=== PATIENT | male | born 1940 | race Caucasian/White ===

== ENCOUNTER 2018-02-09 12:54 | Inpatient (IN) | payer OTHER, MEDICARE ==
[~2018-02-09] VITALS: Ht 170.2 cm; Wt 75.4 kg
--- NOTE | 2018-02-09 13:31 | ED GI/GU/ABDOMINAL COMPLAINT ---
History of Present Illness General Chief Complaint: Nausea, Vomiting, Diarrhea Stated Complaint: DIARRHEA Source: patient, family, old records Exam Limitations: no limitations Vital Signs & Intake/Output Vital Signs & Intake/Output Vital Signs Date Time Temp Pulse Resp B/P B/P Pulse O2 O2 Flow FiO2 Mean Ox Delivery Rate 02/09 1306 97.8 88 18 90/57 96 Room Air Allergies Coded Allergies: Sulfa (Sulfonamide Antibiotics) (Mild, HIVES 02/09/18) Reconcile Medications Aspirin (Aspirin*) 81 MG TAB.CHEW 1 TAB PO DAILY HEART HEALTH (Reported) Lisinopril 10 MG TABLET 1 TAB PO DAILY HEART (Reported) Rosuvastatin Calcium (Crestor) 20 MG TABLET 1 TAB PO DAILY CHOLESTEROL ( Reported) Triage Note: RECEIVED 77 YO MALE C/O SEVERE DIARRHEA X 8 DAYS NO RECENT TRAVEL, DIARRHEA STARTED NAUSEA/VOMITING. NO C/O ABDOMINAL PAIN. PT NOT EATING AND DRINKING NORMALLY. PT HAS ALREADY HAD 6 EPISODES OF DIARRHEA TODAY. PT WAS SEEN AT URGENT CARE AND PROVIDED [facility] WITH A STOOL SAMPLE. SOME INTERMITTENT LIGHTHEADEDNESS/DIZZINESS WHEN HE BENDS OVER. Triage Nurses Notes Reviewed? yes HPI: Patient presents with an 8 day history of vomiting and diarrhea. Patient states that last week he was on his boat but denies eating any fresh seafood or clams or oysters. Patient states in the next day he developed watery diarrhea. He states that he has been moving his bowels approximately 10 times per day. Patient also states at times he suddenly just throws up. He denies any nausea. He says that just just comes out. Is no fevers or chills. He is now feeling a little weak. There is no abdominal pain or abdominal cramping. Patient went to a walk-in center and had a stool sample however he still does not have the results.. Patient has been taking Imodium without any relief. Past History Travel History Traveled to [place] past 21 day No Medical History Any Pertinent Medical History? see below for history Neurological: NONE EENT: NONE Cardiovascular: CARDIAC CATH WITH 2 STENT Respiratory: NONE Gastrointestinal: NONE Hepatic: NONE Renal: NONE Musculoskeletal: NONE Psychiatric: NONE Endocrine: NONE Blood Disorders: NONE Cancer(s): NONE Surgical History Surgical History: PTCA WITH STENT Psychosocial History What is your primary language Belarusian Tobacco Use: Never used ETOH Use: denies use Illicit Drug Use: denies illicit drug use Family History Hx Contributory? No Review of Systems Review of Systems Constitutional: Reports: see HPI, weakness. EENTM: Reports: no symptoms. Respiratory: Reports: no symptoms. Cardiovascular: Reports: no symptoms. GI: Reports: see HPI, diarrhea, nausea, vomiting. Genitourinary: Reports: no symptoms. Musculoskeletal: Reports: no symptoms. Skin: Reports: no symptoms. Neurological/Psychological: Reports: no symptoms. Hematologic/Endocrine: Reports: no symptoms. Immunologic/Allergic: Reports: no symptoms. All Other Systems: Reviewed and Negative Physical Exam Physical Exam General Appearance: well developed/nourished, alert, awake, anxious, mild distress Head: atraumatic, normal appearance Eyes: Bilateral: PERRL, EOMI. Ears, Nose, Throat, Mouth: hearing grossly normal, moist mucous membrane Neck: normal inspection, supple, full range of motion Respiratory: normal breath sounds, chest non-tender, no respiratory distress, lungs clear Cardiovascular: regular rate/rhythm, normal peripheral pulses Gastrointestinal: normal bowel sounds, soft, non-tender, no organomegaly Back: normal inspection, normal range of motion Extremities: normal range of motion Neurologic/Psych: no motor/sensory deficits, awake, alert, oriented x 3, normal gait, normal mood/affect Skin: intact, normal color, warm/dry Core Measures ACS in differential dx? No Sepsis Present: No Sepsis Focused Exam Completed? No Progress Differential Diagnosis: AMI, bowel obstruction, diverticulitis, ischemic bowel, inflamm bowel dis, GASTROENTERITIS c. DIFFICILE Plan of Care: Orders Procedure Date/time Status LACTIC ACID 02/09 1604 Active Patient Data 02/09 1431 Active EKG 02/[address] ABD & PELVIS W/O IV CONTRAS 02/09 1306 Active LACTIC ACID 02/09 1304 Complete CULTURE,STOOL 02/09 1302 Active OVA AND PARASITE ANTIGENS 02/09 1302 Active C.DIFFICILE 02/09 1302 Active URINALYSIS 02/09 1302 Active TROPONIN LEVEL 02/09 1302 Complete COMPREHENSIVE METABOLIC PANEL 02/09 1302 Complete CBC WITHOUT DIFFERENTIAL 02/09 1302 Complete Current Medications Sig/Alexandr Start time Last Medication Dose Stop Time Status Admin Lactated Ringer's 1,000 ML .[id number] 02/09 1445 UNir (Lactated Ringers) Sodium Chloride 1,000 ML BOLUS ONE 02/09 1430 AC (Normal Saline 0.9%) 02/09 1529 Sodium Chloride 1,000 ML BOLUS ONE 02/09 1430 AC (Normal Saline 0.9%) 02/09 1529 Laboratory Tests 02/09/18 1320: Lactic Acid 1.5 02/09/18 1320: Anion Gap 25 H, Estimated GFR 7 L, BUN/Creatinine Ratio 12.9, Glucose 114 H, Calcium 9.0, Total Bilirubin 0.5, AST 12 L, ALT 31, Alkaline Phosphatase 69, Troponin I < 0.01, Total Protein 7.3, Albumin 4.4, Globulin 2.9, Albumin/ Globulin Ratio 1.5, CBC w Diff NO MAN DIFF REQ, RBC 5.28, MCV 84.2, MCH 29.2, MCHC 34.7, RDW 14.0, MPV 7.7, Gran % 75.3 H, Lymphocytes % 12.1 L, Monocytes % 8.0, Eosinophils % 4.5, Basophils % 0.1, Absolute Granulocytes 9.2 H, Absolute Lymphocytes 1.5, Absolute Monocytes 1.0 H, Absolute Eosinophils 0.5, Absolute Basophils 0 Microbiology 02/09 1302 STOOL: Cryptosporidium Antigen - ORD 02/09 1302 STOOL: Giardia Antigen (QI) - ORD 02/09 130 STOOL: Clostridium difficile Toxin A & B - ORD 02/09 130 STOOL: Stool Culture - ORD Initial ED EKG: NSR, LBBB, nonspecific ST T wave chg Departure Departure Disposition: STILL A PATIENT Condition: Stable Clinical Impression Primary Impression: Acute renal failure Referrals: Sheryl Childs MD (PCP/Family) Departure Forms: Customer Survey General Discharge Information Admission Note Spoke With: Heidi Pisano MD Documentation of Exam: Documentation of any treatments & extenuating circumstances including Concerns Regarding Discharge (functional status, medication knowledge or non-compliance, living conditions, etc.) that warrant an admission rather than observation: [ Aggressive hydration with lactated Ringer's, renal consultation (already called) ,, follow up stool cultures]
[2018-02-09 13:48] LABS: ABSOLUTE BASOPHIL COUNT 0 /CUMM (0.0-0.2); ABSOLUTE EOSINOPHIL COUNT 0.5 /CUMM (0.0-0.7); ABSOLUTE GRANULOCYTE CT 9.2 /CUMM (1.4-6.5); ABSOLUTE LYMPH COUNT 1.5 /CUMM (1.2-3.4); BASOPHIL % 0.1 % (0.0-2.0); EOSINOPHIL % 4.5 % (0-5); GRANULOCYTE % 75.3 % (42.2-75.2); HEMATOCRIT 44.4 % (42-52); MEAN CORPUSCULAR HGB 29.2 PG (27.0-31.0); MEAN CORPUSCULAR HGB CONC 34.7 G/DL (33.0-37.0); MEAN CORPUSCULAR VOLUME 84.2 FL (80.0-94.0); MEAN PLATELET VOLUME 7.7 FL (7.4-10.4); PLATELET COUNT 369 /CUMM (130-400); RED BLOOD CELL CT 5.28 /CUMM (4.70-6.10); WHITE BLOOD CELL COUNT 12.2 /CUMM (4.8-10.8)
[2018-02-09] MEDS ORDERED: CRESTOR20 M2 PO (14:23)
[2018-02-09] MEDS ORDERED: LISINOPRIL10 M1 PO (14:24)
[2018-02-09] MEDS ORDERED: ASPIRIN81 M4 PO (14:24)
--- NOTE | 2018-02-09 14:55 | CT SCAN REPORT ---
EXAMINATION: CT ABDOMEN AND PELVIS WITHOUT CONTRAST CLINICAL INFORMATION: Diarrhea. Hypotension. Concern for diverticulitis. COMPARISON: None. TECHNIQUE: Contiguous axial thin section helical images of the abdomen and pelvis were performed without oral or IV contrast. The data set was reformatted in the coronal and sagittal planes and reviewed on an independent workstation. DLP: 417 mGy-cm. FINDINGS: There is a 4 mm nodule within the left lower lobe on image 1/784. There is also a 3 mm nodule within the left lower lobe on image 15/784. The visualized lung bases are otherwise clear. The visualized portions of the heart are unremarkable. The liver is of normal size and attenuation without focal lesions nor intrahepatic biliary ductal dilation. There are numerous calculi within the gallbladder lumen. There is no wall thickening or discernible pericholecystic fluid. The spleen, pancreas, adrenal glands are unremarkable. Both kidneys are of normal size and attenuation without hydronephrosis or nephrolithiasis. There is no abdominal free fluid. There is neither mesenteric nor retroperitoneal lymphadenopathy. Normal unopacified loops of small and large bowel are identified. There is no pelvic free fluid. The urinary bladder is unremarkable. There is neither pelvic nor inguinal lymphadenopathy. Bone windows: Neither sclerotic nor lytic bone lesions are identified. IMPRESSION: Cholelithiasis without evidence of cholecystitis. No evidence for acute abdominal or pelvic inflammatory or infectious processes. 2. Left lower lobe pulmonary nodules. Various management parameters for solitary pulmonary nodules are in the literature. According to the Fleischner Society, recommendations for pulmonary nodules are as follows: Nodule size < or = to 4 mm in LOW RISK PATIENTS: No follow up needed. Nodule size < or = to 4 mm in HIGH RISK PATIENTS: Follow up CT at 12 months; if unchanged, no further follow up. Nodule size > 4-6 mm in LOW RISK PATIENTS: Follow up CT at 12 months; if unchanged, no further follow up. Nodule size > 4-6 mm in HIGH RISK PATIENTS: Initial follow up CT at 6-12 months, then at 18-24 months if no change. Nodule size > 6-8 mm in LOW RISK PATIENTS: Initial follow up CT at 6-12 months, then at 18-24 months if no change. Nodule size > 6-8 mm in HIGH RISK PATIENTS: Initial follow up CT at 3-6 months, then 9-12 months and 24 months if no change. Nodule size > 8 mm in LOW RISK PATIENTS: Follow up CT at around 3, 9, and 24 months, dynamic contrast-enhanced CT, PET, and/or biopsy. Nodule size > 8 mm in HIGH RISK PATIENTS: Same as for low-risk patients.
--- NOTE | 2018-02-09 14:58 | History & Physical ---
Marvel Briones 02/09/18 1458: General Information and HPI MD Statement: I have seen and personally examined MADONNA MARIE and documented this H&P. The patient is a 77 year old M who presented with a patient stated chief complaint of [Diarrhea]. Source of Information: patient Exam Limitations: no limitations History of Present Illness: Mr. Marie is a 77-year-old male with past medical history of cardiac stent placement in [address] Brennan, prostate cancer status post TURP, hypertension, hyperlipidemia. Patient has been experiencing increased bowel movements for the past 8 days with 1 episode of vomitus. Symptoms started last around 3 AM when patient began to experience 7-8 episodes of foul- smelling, watery bowel movements. Denies any changes in diet prior to onset of diarrhea, denies any recent travel, recent infections. Patient states he had tried Imodium which was ineffective in controlling diarrhea, has a decrease in appetite, tolerating a liquid diet. On Tuesday patient went to urgent care where he is provided stool sample, which patient has been has not received results back yet. Came into hospital today because he could not wait any longer, Imodium has been unsuccessful in controlling diarrhea. Of note patient states on Tuesday, January 30 he had gone to see on his boat, denies eating fresh seafood or drinking water. Patient denies fever, chest pain, shortness of breath, abdominal pain, bloody stools, urinary symptoms. Allergies/Medications Allergies: Coded Allergies: Sulfa (Sulfonamide Antibiotics) (Mild, HIVES 02/09/18) Home Med list Aspirin (Aspirin*) 81 MG TAB.CHEW 1 TAB PO DAILY HEART HEALTH (Reported) Lisinopril 10 MG TABLET 1 TAB PO DAILY HEART (Reported) Rosuvastatin Calcium (Crestor) 20 MG TABLET 1 TAB PO DAILY CHOLESTEROL ( Reported) Compliance With Home Meds: FAIR Past History Travel History Traveled to [place] past 21 day No Medical History Neurological: NONE EENT: NONE Cardiovascular: hypertension, hyperlipidemia, CARDIAC CATH WITH 2 STENT Respiratory: NONE Gastrointestinal: NONE Hepatic: NONE Renal: NONE Musculoskeletal: NONE Psychiatric: NONE Endocrine: NONE Blood Disorders: NONE Cancer(s): prostate cancer (s/p TURP) Surgical History Surgical History: PTCA WITH STENT Past Family/Social History Psychosocial History Where do you live? Home ETOH Use: denies use Illicit Drug Use: denies illicit drug use Review of Systems Review of Systems Constitutional: Reports: see HPI. Exam & Diagnostic Data Last 24 Hrs of Vital Signs/I&O Vital Signs Date Time Temp Pulse Resp B/P B/P Pulse O2 O2 Flow FiO2 Mean Ox Delivery Rate 02/09 1306 97.8 88 18 90/57 96 Room Air Intake & Output 02/09 1600 02/09 0800 02/09 0000 Intake Total Output Total Balance Patient 168 lb Weight Weight Standing Scale Measurement Method Physical Exam General Appearance Alert, Oriented X3, Cooperative Skin No Rashes HEENT Atraumatic, PERRLA, EOMI Neck Supple, +2 Carotid Pulse wo Bruit, No LAD Cardiovascular Regular Rate, Normal S1, Normal S2 Lungs Clear to Auscultation, Normal Air Movement Abdomen Normal Bowel Sounds, Soft, No Tenderness, No Hepatospenomegaly Extremities No Cyanosis, No Edema, Normal Pulses Vascular Normal Pulses, Pulses Symmetrical Assessment/Plan Assessment: Ms. Verdugo is a 77-year-old male with past medical history of cardiac stent placement in [address] Brennan, prostate cancer status post TURP, hypertension, hyperlipidemia. Patient has been experiencing increased bowel movements for the past 8 days. Problem list: 1. Gastroenteritis 2. MAYUR #Gastroenteritis: Most likely etiology is viral but cannot exclude bacterial. Plan - Stool culture - C. diff - Follow up with [facility] regarding culture from [facility] urgent care #MAYUR: Creatinine level on admission 7.9 with a history of normal creatinine function, most likely due to hypovolemia secondary to the diarrhea. Ultrasound negative for renal pathology, hydronephrosis or obstruction. Plan #Pulmonary lung nodules: Patient asymptomatic, 4mm noduule in LLL and 3mm nodule in LLL on CT. plan: -patient will require work up, most likely in outpatient setting #Hyperlipidemia Plan - Atorvastatin 80mg #Hypertension Plan: - Hold Lisonpril, due to MAYUR and SBP of 90/57 DVT PPx: Heparin Diet: heart healthy Code status: Full code As Ranked By This Provider Problem List: 1. Gastroenteritis Core Measures/Misc (04/10) Acute Coronary Syndrome ACS Diagnosis: No Congestive Heart Failure Congestive Heart Failure Diagnosis No Cerebrovascular Accident CVA/TIA Diagnosis: No VTE (View Protocol) VTE Risk Factors Age>40 No Mechanical VTE Prophylaxis d/t Early Ambulation No VTE Pharm Prophylaxis d/t NA PharmProphylax ordered Sepsis (View protocol) Sepsis Present: No If YES complete Sepsis Event Note If YES complete Sepsis Event Note Maynor Frazier MD 02/09/18 1549: Core Measures/Misc (04/10) Sepsis (View protocol) If YES complete Sepsis Event Note If YES complete Sepsis Event Note Resident Review Statement Resident Statement: examined this patient, discussed with general internal medicine physician, agreed with general internal medicine physician, discussed with family, reviewed EMR data (avail), discussed with nursing , discussed with case mgmt, reviewed images, amended to note Other Findings: Mr. Marie is a 77-year-old male with past medical history of cardiac stents in [address] Gilliland, chronic left bundle branch block, hyperlipidemia and prostate cancer status post TURP who presents with one-week history of diarrhea. The patient notes that he has been having diarrhea about 7 -8 times a day, described as watery and without blood. He went to the urgent care center on Tuesday and sent a stool sample but the results have not come back yet. He is additionally vomited twice but otherwise has been tolerating a liquid diet but not eating much. He denies any fever, sick contacts, recent travel, chest pain, shortness of breath, abdominal pain, or dysuria. He is a never smoker, drinks alcohol socially, and denies recreational drug use. He is allergic to sulfa drugs causing hives. On presentation, vital signs were T 97.8, HR 88, RR 18, BP 90//57, saturating 96 % room air.. General: Patient appears stated age, alert and orientedx3. HEENT: PERRL. No goiter. No palpable lymph nodes. Dry mucous membranes Cardiovascular: Regular rate and rhythm, no murmurs, rubs, or gallops. Lungs: Clear to auscultation bilaterally. Abdomen: Normal bowel sounds. Nontender to palpation in all four quadrants. Neuro: CN II-XII intact without any focal deficits. Ext: No edema, pulses normal. Laboratories were significant for WBC 12.2, sodium 133, chloride 91, carbon dioxide 17, BUN 93, creatinine 7.2 (baseline 0.8) C's, glucose 114, negative LFTs, troponin less than 0.01.. He will be admitted to general medicine and treated for the following problems: 1. Acute renal failure 2. Acute gastroenteritis #Acute renal failure: Patient presents with a markedly elevated creatinine with previously normal renal function in the setting of hypovolemia secondary to acute gastroenteritis. Most likely his hypovolemic state is the cause of his renal failure though his creatinine is markedly high for prerenal disease. CT scan does not show any signs of obstruction. We will rehydrate him and monitor the creatinine. -Lactated Ringer's 175 mL/h -Strict I's and O's, target positive fluid balance. He may require a Velasco catheter for accurate output measurement -Urinalysis -Urine electrolytes and osmolality -Hold lisinopril #Acute gastroenteritis: Patient does not have any travel history or history of sick contacts. He did go boating recently but did not have any fish. The etiology of his gastroenteritis is unclear but most likely viral versus bacterial, including E. coli and Salmonella. Will follow up the stool culture sent to [facility]. -Stool culture -C. difficile #Chronic medical problems -Continue other home medications DVT prophylaxis with heparin Heart healthy diet Full code Colton Jewell MD 02/09/18 7403: Core Measures/Misc (04/10) Sepsis (View protocol) If YES complete Sepsis Event Note If YES complete Sepsis Event Note Attending MD Review Statement Attending Statement Attending MD Statement: examined this patient, discuss w/resident/PA/, agreed w/resident/PA/, discussed with family, reviewed EMR data (avail), reviewed images, amended to note Attending Assessment/Plan: The patient is a 77 yo male with h/o CAD (s/p stents 2004), h/o prostate ca (s/p surgery), HTN, & HL who presented in the ED with c/o 8 days of diarrhea (7-8 x/ day) and 1 episode of emesis. He had been seen at an urgent care center and was treated with Imodium and stool samples (for culture and C-diff). He denied fever or chills. Did have some abdominal cramping, however no severe pain. He denied recent antibiotics or travel. He continued to take his usual medication and felt somewhat lightheaded. No syncope, chest pain, or dyspnea. Physical Exam: VS: T 97.8, P 88, R 18, BP 90/57, PO 96% RA HEENT: eyes- PERRLA, EOMI dylon- dry mucosa Neck: no adenopathy, JVD or bruits Chest: clear Cor: RRR nl S1, S2 w/o murm Abd: BS+, soft, NT, - HSM Ext: - edema, pulses 2+ Neuro: alert & oriented x 3, non-focal exam Labs/Tests- Laboratory Tests 02/09/18 1707: Urinalysis LIGHT H, Urine Color YEL, Urine Clarity CLEAR, Urine pH 6.0, Ur Specific [place] 1.010, Urine Protein NEG, Urine Ketones NEG, Urine Nitrite NEG, Urine Bilirubin NEG, Urine Urobilinogen 0.2, Ur Leukocyte Esterase NEG, Ur Microscopic SEDIMENT EXAMINED, Urine WBC 1-3 H, Urine Hemoglobin TRACE-INTACT H, Urine Glucose NEG 02/09/18 1707: Urine Osmolality 199 L, Ur Random Creatinine 104.2, Ur Random Sodium 21 L, Ur Random Potassium 9.1, Fraction Sodium Excret 1.1 H 02/09/18 1604: Lactic Acid Cancelled 02/09/18 1320: Lactic Acid 1.5 02/09/18 1320: Anion Gap 25 H, Estimated GFR 7 L, BUN/Creatinine Ratio 12.9, Glucose 114 H, Serum Osmolality 305 H, Calcium 9.0, Total Bilirubin 0.5, AST 12 L, ALT 31, Alkaline Phosphatase 69, Troponin I < 0.01, Total Protein 7.3, Albumin 4.4, Globulin 2.9, Albumin/Globulin Ratio 1.5, CBC w Diff NO MAN DIFF REQ, RBC 5.28, MCV 84.2, MCH 29.2, MCHC 34.7, RDW 14.0, MPV 7.7, Gran % 75.3 H, Lymphocytes % 12.1 L, Monocytes % 8.0, Eosinophils % 4.5, Basophils % 0.1, Absolute Granulocytes 9.2 H, Absolute Lymphocytes 1.5, Absolute Monocytes 1.0 H, Absolute Eosinophils 0.5, Absolute Basophils 0 Impression/Plan; #Acute Kidney Injury- Cr had been normal within last year now 7.2. Presumed volume depletion as cause. No renal outflow obstruction on US or CT. Plan: Admit to general medical floor. Aggresive hydration - IV Follow-up BEP. Nephrology consult- Dr. Hoskins (notified from ED). Check Mg, Phos, uric acid. #Gastroenteritis- CT abd/pel neg. The patient's had spoken to the urgent care center this morning and no culture results were back from [facility] as of yet. C-diff and cultures from urgent care not resulted yet. Would be unusual for viral infection to result in persistent symptoms. Plan: Will obtain stool results from [facility] in morning. IV hydration and follow/chart all stools. If persistent will need GI input. Zofran for nausea. #CAD- S/P stents in past. Plan: Continue ASA. #HTN- patient denies diagnosis, however is on Lisinopril. Now hypotensive due to volume depletion. Plan: Hold Lisinopril due to hypotension and renal failure. If BP increases would use amlodipine or metoprolol. #Hyperlipidemia- on Atorvastatin. Plan: Will hold statin until GI symptoms improve. #H/O Prostate Ca- chart states s/p TURP (?prostatectomy). Had no significant obstructive symptoms. Plan: Will clarify his prior treatment (?prostatectomy, XRT, radioactive seeds?) .
--- NOTE | 2018-02-09 17:08 | Admission Certification ---
Admission Certification Certification Statement - As attending physician, I certify that at the time of - admission, based on clinical presentation, severity of - symptoms, need for further diagnostic testing and - therapeutic interventions, and risk of adverse outcomes - without in-hospital treatment, in my clinical assessment, - this patient requires an acute hospital stay for a minimum - of two nights or longer. I have also considered psychsocial - factors such as support system, advanced age, financial - issues, cognitive issues, and failed out-patient treatments, - past re-admission history, safety of patient, and lack of - compliance as applicable. Specific rationale supporting this admission is: The patient presents with significant gastroenteritis, volume depletion and acute renal failure (Cr 7.2). Needs admission for IV hydration, Nephrology consult, close follow of renal function, check stool cultures (done as OP).
[2018-02-09 18:32] VITALS: BP 116/58
[2018-02-09 22:16] VITALS: BP 98/44
[2018-02-10 06:46] VITALS: BP 105/50
--- NOTE | 2018-02-10 07:26 | PN- Housestaff ---
See Addendum Subjective Follow-up For: Gastroenteritis Subjective: Patient has 4 episodes of water, foul smelling diarrhea from 8pm-1am last night, and one episode this morning. patient is tolerating his diet, denies nausea/ vomiting, blood in his stools. Denies: fever, night sweats and chills. Review of Systems Constitutional: Reports: see HPI. Objective Last 24 Hrs of Vital Signs/I&O Vital Signs Date Time Temp Pulse Resp B/P B/P Pulse O2 O2 Flow FiO2 Mean Ox Delivery Rate 02/10 0646 98.6 75 20 105/50 96 Room Air 02/09 2216 98.0 67 18 98/44 98 02/09 1832 97.8 70 18 116/58 98 02/09 1742 97.6 70 18 98/56 100 Room Air 02/09 1306 97.8 88 18 90/57 96 Room Air Intake & Output 02/10 0800 02/10 0000 02/09 1600 Intake Total 855 Output Total Balance 855 Intake, IV 375 Intake, Oral 480 Number 1 Bowel Movements Patient 168 lb 168 lb Weight Weight Reported by Patient Standing Scale Measurement Method Physical Exam General Appearance: Alert, Oriented X3, Cooperative Skin: No Rashes HEENT: Atraumatic, EOMI Cardiovascular: Regular Rate, Normal S1, Normal S2 Lungs: Clear to Auscultation, Normal Air Movement Abdomen: Normal Bowel Sounds, Soft, No Tenderness, No Hepatospenomegaly Assessment/Plan Assessment: Ms. Harding is a 77-year-old male with past medical history of cardiac stent placement in [address] Brennan, prostate cancer status post TURP, hypertension, hyperlipidemia. Patient has been experiencing increased bowel movements for the past 8 days. Problem list: 1. Gastroenteritis 2. MAYUR #Gastroenteritis: Most likely etiology is viral but cannot exclude bacterial. Stool culture negative for Giardia and Cryptosporidium, C. difficile negative, Shiga toxin negative Plan - Stool culture - Follow up with [facility] regarding culture from [facility] urgent care [phone] #Pre-Renal Azotemia: Creatinine level on admission 7.9 with a history of normal creatinine function, most likely due to hypovolemia secondary to the diarrhea. Ultrasound negative for renal pathology, hydronephrosis or obstruction. Today creatinine level was 4.4. FeNa was 1.1 producing mixed picture of acute tubular necrosis secondary to most likely hypovolemia. Plan #Pulmonary lung nodules: Patient asymptomatic, 4mm noduule in LLL and 3mm nodule in LLL on CT. plan: -patient will require work up, most likely in outpatient setting #Hyperlipidemia Plan - Atorvastatin 80mg #Hypertension Plan: - Hold Lisonpril, due to MAYUR and SBP of 90/57 DVT PPx: Heparin Diet: heart healthy Code status: Full code Discharge planning, if diarrhea continues to improve and renal function continues to improve can potentially discharge patient tomorrow. Problem List: 1. Gastroenteritis Pain Ratin Pain Location: n/a Pain Goal: Remain pain free Pain Plan: tylenol Tomorrow's Labs & Rationales: bep
--- NOTE | 2018-02-10 10:38 | Cons- Nephrology ---
General Information and HPI Consulting Request Date of Consult: 02/10/18 Requested By: Colton Jewell MD Reason for Consult: MAYUR Source of Information: patient Exam Limitations: no limitations History of Present Illness: The patient is a 77-year-old male with a past medical history significant for baseline normal renal function, hypertension on an BARNEY inhibitor, CAD status post PCI, hyperlipidemia on a statin who presents with diarrhea. The patient was in his usual state of health prior to last month when he reports being treated for urinary tract infection with ciprofloxacin. About a week ago he started having profuse diarrhea approximately 7-8 times per day. He reports feeling dehydrated. He continue to take his lisinopril during this time. He also took ibuprofen during this time. There was some nausea and vomiting along with decreased p.o. intake. Imodium was not helping. No fevers or chills. No urinary difficulties or gross hematuria. He went to a walk-in clinic who took a stool sample for which the results are still pending. He presented to [facility] where he was found to have a blood pressure 90/ 57, heart rate 88afebrile. Labs notable for serum creatinine 7.2, bicarbonate 17, sodium 133, WBC 12.2, hemoglobin 15.4. Urinalysis bland. FENa 1.1%. CT neg for acute abdominal process. He was put on IV fluid and looks like approximately 2 L. Creatinine is now 4.4. He reports feeling much better and is able to take in p.o. Allergies/Medications Allergies: Coded Allergies: Sulfa (Sulfonamide Antibiotics) (Mild, HIVES 02/09/18) Home Med List: Aspirin (Aspirin*) 81 MG TAB.CHEW 1 TAB PO DAILY HEART HEALTH (Reported) Lisinopril 10 MG TABLET 1 TAB PO DAILY HEART (Reported) Rosuvastatin Calcium (Crestor) 20 MG TABLET 1 TAB PO DAILY CHOLESTEROL ( Reported) Review of Systems Review of Systems: Complete 14 point ROS neg except as per HPI Past History Travel History Traveled to [place] past 21 day No Medical History Blood Transfusion Hx: Yes Neurological: NONE EENT: NONE Cardiovascular: hypertension, hyperlipidemia, CARDIAC CATH WITH 2 STENT Respiratory: NONE Gastrointestinal: NONE Hepatic: NONE Renal: NONE Musculoskeletal: NONE Psychiatric: NONE Endocrine: NONE Blood Disorders: NONE Cancer(s): prostate cancer (s/p TURP) Surgical History Surgical History: PTCA WITH STENT Psychosocial History Where Do You Live? Home Services at Home: None Smoking Status: Never Smoked ETOH Use: denies use Illicit Drug Use: denies illicit drug use Exam & Diagnostic Data Vital Signs and I&O Vital Signs Date Time Temp Pulse Resp B/P B/P Pulse O2 O2 Flow FiO2 Mean Ox Delivery Rate 02/10 0646 98.6 75 20 105/50 96 Room Air 02/09 2216 98.0 67 18 98/44 98 02/09 1832 97.8 70 18 116/58 98 02/09 1742 97.6 70 18 98/56 100 Room Air 02/09 1306 97.8 88 18 90/57 96 Room Air Intake & Output 02/10 1600 02/10 0400 02/09 1600 02/09 0400 02/08 1600 02/08 0400 Intake Total 1700 855 Output Total Balance 1700 855 Intake, IV 1600 375 Intake, Oral 100 480 Number 4 1 Bowel Movements Patient 168 lb 168 lb Weight Weight Reported by Patient Standing Scale Measurement Method Physical Exam: Gen - NAD Head - NCAT Eyes - anicteric sclera, EOMI Neck - supple, no LAD CV - RRR, no m/r/g Chest - clear, no w/r/r Abd - soft, NTND Upper ext - warm, no edema Lower ext - warm, no edema Skin - no rash or jaundice Neuro - AOX3, grossly nonfocal Results Pertinent Lab Results: Laboratory Tests 02/10 02/09 02/09 0808 1707 1707 Chemistry Sodium (137 - 145 mmol/L) 139 Potassium (3.5 - 5.1 mmol/L) 3.8 Chloride (98 - 107 mmol/L) 104 Carbon Dioxide (22 - 30 mmol/L) 21 L Anion Gap (5 - 16) 15 BUN (9 - 20 mg/dL) 82 H Creatinine (0.7 - 1.2 mg/dL) 4.4 H Estimated GFR (>60 ml/min) 13 L BUN/Creatinine Ratio (7 - 25 %) 18.6 Urines Urinalysis LIGHT H Urine Color (YEL,AMB,STR) YEL Urine Clarity (CLEAR) CLEAR Urine pH (5.0 - 8.0) 6.0 Ur Specific [place] (1.001 - 1.035) 1.010 Urine Protein (NEG,<30 MG/DL) NEG Urine Ketones (NEG) NEG Urine Nitrite (NEG) NEG Urine Bilirubin (NEG) NEG Urine Urobilinogen (0.1 - 1.0 EU/dl) 0.2 Ur Leukocyte Esterase (NEG) NEG Ur Microscopic SEDIMENT EXAMINED Urine WBC (0 - 2 /HPF) 1-3 H Urine Hemoglobin (NEG) TRACE-INTACT H Urine Osmolality (300 - 1000 MOSM/KG) 199 L Ur Random Creatinine (mg/dL) 104.2 Ur Random Sodium (30 - 90 mmol/L) 21 L Ur Random Potassium (mmol/L) 9.1 Fraction Sodium Excret (<1% %) 1.1 H Urine Glucose (N MG/DL) NEG 02/09 02/09 02/09 1604 1320 1320 Chemistry Sodium (137 - 145 mmol/L) 133 L Potassium (3.5 - 5.1 mmol/L) 3.8 Chloride (98 - 107 mmol/L) 91 L Carbon Dioxide (22 - 30 mmol/L) 17 L Anion Gap (5 - 16) 25 H BUN (9 - 20 mg/dL) 93 H Creatinine (0.7 - 1.2 mg/dL) 7.2 *H Estimated GFR (>60 ml/min) 7 L BUN/Creatinine Ratio (7 - 25 %) 12.9 Glucose (65 - 99 mg/dL) 114 H Serum Osmolality (285 - 295 MOSM/KG) 305 H Lactic Acid (0.7 - 2.1 mmol/L) Cancelled 1.5 Calcium (8.4 - 10.2 mg/dL) 9.0 Total Bilirubin (0.2 - 1.3 mg/dL) 0.5 AST (17 - 59 U/L) 12 L ALT (21 - 72 U/L) 31 Alkaline Phosphatase (< 127 U/L) 69 Troponin I (<0.11 ng/ml) < 0.01 Total Protein (6.3 - 8.2 g/dL) 7.3 Albumin (3.5 - 5.0 g/dL) 4.4 Globulin (1.9 - 4.2 gm/dL) 2.9 Albumin/Globulin Ratio (1.1 - 2.2 %) 1.5 Hematology CBC w Diff NO MAN DIFF REQ WBC (4.8 - 10.8 /CUMM) 12.2 H RBC (4.70 - 6.10 /CUMM) 5.28 Hgb (14.0 - 18.0 G/DL) 15.4 Hct (42 - 52 %) 44.4 MCV (80.0 - 94.0 FL) 84.2 MCH (27.0 - 31.0 PG) 29.2 MCHC (33.0 - 37.0 G/DL) 34.7 RDW (11.5 - 14.5 %) 14.0 Plt Count (130 - 400 /CUMM) 369 MPV (7.4 - 10.4 FL) 7.7 Gran % (42.2 - 75.2 %) 75.3 H Lymphocytes % (20.5 - 51.1 %) 12.1 L Monocytes % (1.7 - 9.3 %) 8.0 Eosinophils % (0 - 5 %) 4.5 Basophils % (0.0 - 2.0 %) 0.1 Absolute Granulocytes (1.4 - 6.5 /CUMM) 9.2 H Absolute Lymphocytes (1.2 - 3.4 /CUMM) 1.5 Absolute Monocytes (0.10 - 0.60 /CUMM) 1.0 H Absolute Eosinophils (0.0 - 0.7 /CUMM) 0.5 Absolute Basophils (0.0 - 0.2 /CUMM) 0 Imaging/Other Studies: CT IMPRESSION: Cholelithiasis without evidence of cholecystitis. No evidence for acute abdominal or pelvic inflammatory or infectious processes. 2. Left lower lobe pulmonary nodules. Assessment/Plan Assessment/Recommendations Assessment: MAYUR - 2/2 pre-renal azotemia +/- ATN in the setting of profuse diarrhea, poor PO intake while on RAAS inhibition and NSAIDs. Is already improving with IVF. Recommendations: -Cont IVF as you are - would cont for the next day and if taking in good PO, OK to d/c Likely OK to discharge from a renal standpoint tomorrow if renal function continues to improve - can follow-up labs as an outpatient in subsequent 1-2 weeks to ensure recovery of renal function Pt educated regarding holding RAAS inhibition and avoiding NSAIDs in times of volume depletion Please call [phone] with ?'s
[2018-02-10 13:39] VITALS: BP 100/56
--- NOTE | 2018-02-10 18:13 | Cons- Gastroenterology ---
General Information and HPI Consulting Request Date of Consult: 02/10/18 Requested By: Colton Jewell MD Reason for Consult: Acute diarrhea Allergies/Medications Allergies: Coded Allergies: Sulfa (Sulfonamide Antibiotics) (Mild, HIVES 02/09/18) Home Med List: Aspirin (Aspirin*) 81 MG TAB.CHEW 1 TAB PO DAILY HEART HEALTH (Reported) Lisinopril 10 MG TABLET 1 TAB PO DAILY HEART (Reported) Rosuvastatin Calcium (Crestor) 20 MG TABLET 1 TAB PO DAILY CHOLESTEROL ( Reported) Current Medications: Current Medications Sig/Alexandr Start time Last Medication Dose Route Stop Time Status Admin Acetaminophen 650 MG Q6P PRN 02/09 1545 AC PO Aspirin 81 MG DAILY 02/10 0900 AC 02/10 PO 0822 Atorvastatin Calcium 80 MG 1700 02/09 1700 AC 02/10 PO 1617 Heparin Sodium 5,000 UNIT Q8 02/09 2200 AC 02/10 (Porcine) SC 1244 Lactated Ringer's 1,000 ML .Q5H 02/09 1445 AC 02/10 IV 1245 Ondansetron HCl 4 MG ONCE ONE 02/10 1615 DC 02/10 IV 02/10 1616 1616 Patient Medication 1 ED ONE ONE 02/10 1615 DC 02/10 Teaching ED 02/10 1616 1617 Past History Travel History Traveled to [place] past 21 day No Medical History Blood Transfusion Hx: Yes Neurological: NONE EENT: NONE Cardiovascular: hypertension, hyperlipidemia, CARDIAC CATH WITH 2 STENT Respiratory: NONE Gastrointestinal: NONE Hepatic: NONE Renal: NONE Musculoskeletal: NONE Psychiatric: NONE Endocrine: NONE Blood Disorders: NONE Cancer(s): prostate cancer (s/p TURP) Surgical History Surgical History: PTCA WITH STENT Psychosocial History Where Do You Live? Home Services at Home: None Smoking Status: Never Smoked ETOH Use: denies use Illicit Drug Use: denies illicit drug use Exam & Diagnostic Data Vital Signs and I&O Vital Signs Date Time Temp Pulse Resp B/P B/P Pulse O2 O2 Flow FiO2 Mean Ox Delivery Rate 02/10 1600 Room Air 02/10 1339 97.7 68 18 100/56 98 02/10 0646 98.6 75 20 105/50 96 Room Air 02/09 2216 98.0 67 18 98/44 98 02/09 1832 97.8 70 18 116/58 98 Intake & Output 02/10 1600 02/10 0400 02/09 1600 02/09 0400 02/08 1600 02/08 0400 Intake Total 2200 855 Output Total Balance 2200 855 Intake, IV 1600 375 Intake, Oral 600 480 Number 4 1 Bowel Movements Patient 168 lb 168 lb Weight Weight Reported by Patient Standing Scale Measurement Method Physical Exam: Abdomen benign Results Pertinent Lab Results: Laboratory Tests 02/10 02/09 02/09 0808 1707 1707 Chemistry Sodium (137 - 145 mmol/L) 139 Potassium (3.5 - 5.1 mmol/L) 3.8 Chloride (98 - 107 mmol/L) 104 Carbon Dioxide (22 - 30 mmol/L) 21 L Anion Gap (5 - 16) 15 BUN (9 - 20 mg/dL) 82 H Creatinine (0.7 - 1.2 mg/dL) 4.4 H Estimated GFR (>60 ml/min) 13 L BUN/Creatinine Ratio (7 - 25 %) 18.6 Urines Urinalysis LIGHT H Urine Color (YEL,AMB,STR) YEL Urine Clarity (CLEAR) CLEAR Urine pH (5.0 - 8.0) 6.0 Ur Specific [place] (1.001 - 1.035) 1.010 Urine Protein (NEG,<30 MG/DL) NEG Urine Ketones (NEG) NEG Urine Nitrite (NEG) NEG Urine Bilirubin (NEG) NEG Urine Urobilinogen (0.1 - 1.0 EU/dl) 0.2 Ur Leukocyte Esterase (NEG) NEG Ur Microscopic SEDIMENT EXAMINED Urine WBC (0 - 2 /HPF) 1-3 H Urine Hemoglobin (NEG) TRACE-INTACT H Urine Osmolality (300 - 1000 MOSM/KG) 199 L Ur Random Creatinine (mg/dL) 104.2 Ur Random Sodium (30 - 90 mmol/L) 21 L Ur Random Potassium (mmol/L) 9.1 Fraction Sodium Excret (<1% %) 1.1 H Urine Glucose (N MG/DL) NEG 02/09 02/09 02/09 1604 1320 1320 Chemistry Sodium (137 - 145 mmol/L) 133 L Potassium (3.5 - 5.1 mmol/L) 3.8 Chloride (98 - 107 mmol/L) 91 L Carbon Dioxide (22 - 30 mmol/L) 17 L Anion Gap (5 - 16) 25 H BUN (9 - 20 mg/dL) 93 H Creatinine (0.7 - 1.2 mg/dL) 7.2 *H Estimated GFR (>60 ml/min) 7 L BUN/Creatinine Ratio (7 - 25 %) 12.9 Glucose (65 - 99 mg/dL) 114 H Serum Osmolality (285 - 295 MOSM/KG) 305 H Lactic Acid (0.7 - 2.1 mmol/L) Cancelled 1.5 Calcium (8.4 - 10.2 mg/dL) 9.0 Total Bilirubin (0.2 - 1.3 mg/dL) 0.5 AST (17 - 59 U/L) 12 L ALT (21 - 72 U/L) 31 Alkaline Phosphatase (< 127 U/L) 69 Troponin I (<0.11 ng/ml) < 0.01 Total Protein (6.3 - 8.2 g/dL) 7.3 Albumin (3.5 - 5.0 g/dL) 4.4 Globulin (1.9 - 4.2 gm/dL) 2.9 Albumin/Globulin Ratio (1.1 - 2.2 %) 1.5 Hematology CBC w Diff NO MAN DIFF REQ WBC (4.8 - 10.8 /CUMM) 12.2 H RBC (4.70 - 6.10 /CUMM) 5.28 Hgb (14.0 - 18.0 G/DL) 15.4 Hct (42 - 52 %) 44.4 MCV (80.0 - 94.0 FL) 84.2 MCH (27.0 - 31.0 PG) 29.2 MCHC (33.0 - 37.0 G/DL) 34.7 RDW (11.5 - 14.5 %) 14.0 Plt Count (130 - 400 /CUMM) 369 MPV (7.4 - 10.4 FL) 7.7 Gran % (42.2 - 75.2 %) 75.3 H Lymphocytes % (20.5 - 51.1 %) 12.1 L Monocytes % (1.7 - 9.3 %) 8.0 Eosinophils % (0 - 5 %) 4.5 Basophils % (0.0 - 2.0 %) 0.1 Absolute Granulocytes (1.4 - 6.5 /CUMM) 9.2 H Absolute Lymphocytes (1.2 - 3.4 /CUMM) 1.5 Absolute Monocytes (0.10 - 0.60 /CUMM) 1.0 H Absolute Eosinophils (0.0 - 0.7 /CUMM) 0.5 Absolute Basophils (0.0 - 0.2 /CUMM) 0 Assessment/Plan Assessment/Recommendations: Acute, severe watery diarrhea, with associated volume depletion and MAYUR. Likely infectious in nature. By description, appears to be small intestinal/secretory, and may be toxin induced. Recommendations * Await final results of culture * Check stool for vibrio, lactoferrin * May consider antimicrobial therapy if no improvement over weekend * Avoid antimotility agents for now Consult Acknowledgment - Thank you for your consult request.
[2018-02-10 22:41] VITALS: BP 110/62
[2018-02-11 07:00] VITALS: BP 140/64
--- NOTE | 2018-02-11 10:12 | PN- Housestaff ---
JoaquinRaeann 02/11/18 1011: Subjective Follow-up For: persistent diarrhea Complaints: continued diarrhea Subjective: Patient reports episodes of diarrhea as often as every hour. Reports a foul odor. He denies any blood. He has no other complaints and otherwise feels fine. Denies fever, chills, n/v, chest pain, SOB, abodominal pain. 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 He was also treated with Cipro in for a UTI. Review of Systems Constitutional: Reports: see HPI. Objective Last 24 Hrs of Vital Signs/I&O Vital Signs Date Time Temp Pulse Resp B/P B/P Pulse O2 O2 Flow FiO2 Mean Ox Delivery Rate 02/11 1456 97.8 79 18 100/60 98 Room Air 02/11 0800 Room Air 02/11 0700 98.7 82 18 140/64 97 02/10 2241 98.5 83 18 110/62 99 02/10 1600 Room Air Intake & Output 02/11 1600 02/11 0800 02/11 0000 Intake Total 1355 1600 760 Output Total 450 Balance 1355 1600 310 Intake, IV 875 1600 400 Intake, Oral 480 360 Number 3 2 Bowel Movements Output, Urine 450 Patient 176 lb Weight Weight Bed scale Measurement Method Physical Exam General Appearance: Alert, Oriented X3, Cooperative, No Acute Distress Skin: No Rashes Skin Temp/Moisture Exam: Warm/Dry HEENT: Atraumatic, PERRLA Neck: Supple Cardiovascular: Regular Rate, Normal S1, Normal S2, No Murmurs Lungs: Clear to Auscultation Abdomen: Normal Bowel Sounds, Soft, No Tenderness Extremities: No Edema, Normal Pulses Assessment/Plan Assessment: Mr. Harding is a 77-year-old male with past medical history of cardiac stent placement in [address] Brennan, prostate cancer status post TURP, hypertension, hyperlipidemia. Patient has been experiencing increased bowel movements for the past 8 days. Problem list: 1. Diarrhea 2. MAYUR 3. Hypokalemia 4. Hypomagnesemia 5. Leukocytosis with bandemia # Diarrhea likely Gastroenteritis: Most likely etiology is viral but cannot exclude bacterial. Stool culture negative for Giardia and Cryptosporidium, C. difficile negative, Shiga toxin negative Plan - Stool culture sent per GI recs - Follow up with [facility] regarding culture from [facility] urgent care #Pre-Renal Azotemia: Creatinine level on admission 7.9 with a history of normal creatinine function, most likely due to hypovolemia secondary to the diarrhea. Ultrasound negative for renal pathology, hydronephrosis or obstruction. Today creatinine level was 4.4. FeNa was 1.1 producing mixed picture of acute tubular necrosis secondary to most likely hypovolemia. Plan 125cc/hr 02/11 as patient BP in 140s systolic and good PO intake -Cr 1.9 today; continue to monitor #Pulmonary lung nodules: Patient asymptomatic, 4mm noduule in LLL and 3mm nodule in LLL on CT. -patient will require work up, most likely in outpatient setting #Hyperlipidemia - Atorvastatin 80mg #Hypertension - Hold Lisonpril, due to MAYUR and SBP of 90/57 #Hypokalemia-likely 2/2 volume depletion from diarrhea -replete with 40mEq today K-dur -continue to monitor #Hypomagnesemia-likely 2/2 volume depletion from diarrhea -replete with 2g IV -continue to monitor #Leukocytosis with bandemia -diarrhea source workup pending -IV hydration -Considering abx per GI recs: cipro vs azithromycin DVT PPx: Heparin Diet: heart healthy Code status: Full code Problem List: 1. Gastroenteritis 2. Acute renal failure Pain Ratin Pain Location: none Pain Goal: Remain pain free Pain Plan: see a/p Tomorrow's Labs & Rationales: bep magnesium cbc Peter LOFTON,Amir 02/11/18 1100: Attending MD Review Statement Attending Statement Attending MD Statement: examined this patient, discuss w/resident/PA/COMMERCIAL [employer] ESTATE ASSOCIATE, agreed w/resident/PA/COMMERCIAL [employer] ESTATE ASSOCIATE, discussed with family, reviewed EMR data (avail), discussed with nursing Attending Assessment/Plan: Mr. Harding was seen and evalauted. Chart reviewed. Still having frequent bouts of diarrhea. Cont IVF. Check extended lytes daily (K, Mag). For now keep him on clears and advance only when diarrhea is improving. --f/u C&S --cont to monitor --rest of the plan as per resident's note
--- NOTE | 2018-02-11 12:21 | PN- Gastroenterology ---
Assessment/Plan GI Assessment/Recommendations: Acute, severe watery diarrhea, with associated volume depletion and MAYUR. Today' s laboratory evaluation pending. Likely infectious in nature. Recommendations * Await final results of culture * Check stool for vibrio, lactoferrin as requested yesterday * Begin antimicrobial therapy. Would consider empiric Cipro 500 mg by mouth twice a day (alternatively could use azithromycin) as well as metronidazole 500 mg by mouth twice a day. * Pepto-Bismol 2 tabs by mouth 4 times a day * Continue to avoid antimotility agents for now. * Would consider solid diet to include wheat/oats/rice/pasta, bananas. Continue rehydration to include oral sodium and sugar. Subjective Subjective: Persistent watery diarrhea. Also had an episode of nausea and vomiting yesterday. No abdominal pain. Objective Vital Signs and I&Os Vital Signs Date Time Temp Pulse Resp B/P B/P Pulse O2 O2 Flow FiO2 Mean Ox Delivery Rate 02/11 0800 Room Air 02/11 0700 98.7 82 18 140/64 97 02/10 2241 98.5 83 18 110/62 99 02/10 1600 Room Air 02/10 1339 97.7 68 18 100/56 98 Intake & Output 02/11 1600 02/11 0400 02/10 1600 02/10 0400 02/09 1600 02/09 0400 Intake Total 8264 480 9738 855 Output Total 450 Balance 1449 065 8296 855 Intake, IV 9693 232 0794 375 Intake, Oral 360 600 480 Number 3 2 4 1 Bowel Movements Output, Urine 450 Patient 176 lb 168 lb 168 lb Weight Weight Bed scale Reported by Patient Standing Scale Measurement Method Physical Exam: Alert and oriented. Normal skin turgor. Abdomen soft, nondistended, nontender. Current Medications: Current Medications Sig/Alexandr Start time Last Medication Dose Route Stop Time Status Admin Acetaminophen 650 MG Q6P PRN 02/09 1545 AC PO Aspirin 81 MG DAILY 02/10 0900 AC 02/11 PO 0759 Atorvastatin Calcium 80 MG 1700 02/09 1700 AC 02/10 PO 1617 Heparin Sodium 5,000 UNIT Q8 02/09 2200 AC 02/11 (Porcine) SC 0630 Lactated Ringer's 1,000 ML .Q8H 02/11 0200 AC 02/11 IV 1055 Lactated Ringer's 1,000 ML .Q5H 02/09 1445 DC 02/10 IV 1946 Ondansetron HCl 4 MG ONCE ONE 02/10 1615 DC 02/10 IV 02/10 1616 1616 Patient Medication 1 ED ONE ONE 02/10 1615 RI 02/10 [facility] ED 02/10 1616 1617 Results Pertinent Lab Results: Laboratory Tests 02/11 02/10 02/09 1213 0808 1945 Chemistry Sodium (137 - 145 mmol/L) Pending 139 Potassium (3.5 - 5.1 mmol/L) Pending 3.8 Chloride (98 - 107 mmol/L) Pending 104 Carbon Dioxide (22 - 30 mmol/L) Pending 21 L Anion Gap (5 - 16) Pending 15 BUN (9 - 20 mg/dL) Pending 82 H Creatinine (0.7 - 1.2 mg/dL) Pending 4.4 H Estimated GFR (>60 ml/min) 13 L BUN/Creatinine Ratio (7 - 25 %) Pending 18.6 Magnesium Pending Other Body Source Stool Lactoferrin Pending 02/09 02/09 02/09 1707 1707 1604 Chemistry Lactic Acid Cancelled Urines Urinalysis LIGHT H Urine Color (YEL,AMB,STR) YEL Urine Clarity (CLEAR) CLEAR Urine pH (5.0 - 8.0) 6.0 Ur Specific [place] (1.001 - 1.035) 1.010 Urine Protein (NEG,<30 MG/DL) NEG Urine Ketones (NEG) NEG Urine Nitrite (NEG) NEG Urine Bilirubin (NEG) NEG Urine Urobilinogen (0.1 - 1.0 EU/dl) 0.2 Ur Leukocyte Esterase (NEG) NEG Ur Microscopic SEDIMENT EXAMINED Urine WBC (0 - 2 /HPF) 1-3 H Urine Hemoglobin (NEG) TRACE-INTACT H Urine Osmolality (300 - 1000 MOSM/KG) 199 L Ur Random Creatinine (mg/dL) 104.2 Ur Random Sodium (30 - 90 mmol/L) 21 L Ur Random Potassium (mmol/L) 9.1 Fraction Sodium Excret (<1% %) 1.1 H Urine Glucose (N MG/DL) NEG 02/09 02/09 1320 1320 Chemistry Sodium (137 - 145 mmol/L) 133 L Potassium (3.5 - 5.1 mmol/L) 3.8 Chloride (98 - 107 mmol/L) 91 L Carbon Dioxide (22 - 30 mmol/L) 17 L Anion Gap (5 - 16) 25 H BUN (9 - 20 mg/dL) 93 H Creatinine (0.7 - 1.2 mg/dL) 7.2 *H Estimated GFR (>60 ml/min) 7 L BUN/Creatinine Ratio (7 - 25 %) 12.9 Glucose (65 - 99 mg/dL) 114 H Serum Osmolality (285 - 295 MOSM/KG) 305 H Lactic Acid (0.7 - 2.1 mmol/L) 1.5 Calcium (8.4 - 10.2 mg/dL) 9.0 Total Bilirubin (0.2 - 1.3 mg/dL) 0.5 AST (17 - 59 U/L) 12 L ALT (21 - 72 U/L) 31 Alkaline Phosphatase (< 127 U/L) 69 Troponin I (<0.11 ng/ml) < 0.01 Total Protein (6.3 - 8.2 g/dL) 7.3 Albumin (3.5 - 5.0 g/dL) 4.4 Globulin (1.9 - 4.2 gm/dL) 2.9 Albumin/Globulin Ratio (1.1 - 2.2 %) 1.5 Hematology CBC w Diff NO MAN DIFF REQ WBC (4.8 - 10.8 /CUMM) 12.2 H RBC (4.70 - 6.10 /CUMM) 5.28 Hgb (14.0 - 18.0 G/DL) 15.4 Hct (42 - 52 %) 44.4 MCV (80.0 - 94.0 FL) 84.2 MCH (27.0 - 31.0 PG) 29.2 MCHC (33.0 - 37.0 G/DL) 34.7 RDW (11.5 - 14.5 %) 14.0 Plt Count (130 - 400 /CUMM) 369 MPV (7.4 - 10.4 FL) 7.7 Gran % (42.2 - 75.2 %) 75.3 H Lymphocytes % (20.5 - 51.1 %) 12.1 L Monocytes % (1.7 - 9.3 %) 8.0 Eosinophils % (0 - 5 %) 4.5 Basophils % (0.0 - 2.0 %) 0.1 Absolute Granulocytes (1.4 - 6.5 /CUMM) 9.2 H Absolute Lymphocytes (1.2 - 3.4 /CUMM) 1.5 Absolute Monocytes (0.10 - 0.60 /CUMM) 1.0 H Absolute Eosinophils (0.0 - 0.7 /CUMM) 0.5 Absolute Basophils (0.0 - 0.2 /CUMM) 0 Imaging/Other Studies: Stool: culture negative, Shiga toxin negative, Giardia antigen negative, cryptosporidium negative, C. difficile toxin negative
--- NOTE | 2018-02-11 12:25 | Patient Discharge Instructions ---
See Addendum Discharge Instructions General Discharge Information You were seen/treated for: Gastroenteritis and Acute Renal failure You had these procedures: no procedures were performed Watch for these problems: Fever, Chest pain, Shortness of breath Special Instructions: Please follow up with PCP Diet Continue normal diet: Yes Recommended Diet: Heart Healthy Activity Full Activity/No Limits: No Acute Coronary Syndrome Inclusion Criteria At DC or during hospital stay patient has or had the following: ACS DIAGNOSIS No Discharge Core Measures Meds if any: Prescribed or Continued at Discharge Meds if any: NOT Prescribed or Continued at Discharge Congestive Heart Failure Inclusion Criteria At DC or during hospital stay patient has or had the following: CHF DIAGNOSIS No Discharge Core Measures Meds if any: Prescribed or Continued at Discharge Meds if any: NOT Prescribed or Continued at Discharge Cerebrovascular accident Inclusion Criteria At DC or during hospital stay patient has or had the following: CVA/TIA Diagnosis No Discharge Core Measures Meds if any: Prescribed or Continued at Discharge Meds if any: NOT Prescribed or Continued at Discharge Venous thromboembolism Inclusion Criteria VTE Diagnosis No VTE Type NONE VTE Confirmed by (Test) NONE Discharge Core Measures - Per Current guidelines, there needs to be overlap - treatment for the first 5 days of Warfarin therapy. - If discharged on Warfarin prior to 5 days of - overlap therapy, the patient will need to be - assessed for post discharge needs including - *Post discharge parental anticoagulation - *Warfarin and/or parental anticoagulation education - *Follow up date to check INR post discharge At least 5 days overlap therapy as Inpatient No Meds if any: Prescribed or Continued at Discharge Note: Overlap Therapy is Warfarin and Anticoagulant Meds if any: NOT Prescribed or Continued at Discharge
[2018-02-11 14:56] VITALS: BP 100/60
[2018-02-11 22:02] VITALS: BP 124/56
[2018-02-12 06:31] VITALS: BP 108/56
[2018-02-12 09:35] LABS: ABSOLUTE BASOPHIL COUNT 0 /CUMM (0.0-0.2); ABSOLUTE EOSINOPHIL COUNT 2.1 /CUMM (0.0-0.7); ABSOLUTE GRANULOCYTE CT 7.9 /CUMM (1.4-6.5); ABSOLUTE LYMPH COUNT 1.1 /CUMM (1.2-3.4); ABSOLUTE MONOCYTE COUNT 0.7 /CUMM (0.10-0.60); BASOPHIL % 0.1 % (0.0-2.0); EOSINOPHIL % 17.5 % (0-5); GRANULOCYTE % 67.2 % (42.2-75.2); MEAN CORPUSCULAR HGB 28.8 PG (27.0-31.0); MEAN CORPUSCULAR HGB CONC 33.8 G/DL (33.0-37.0); MEAN CORPUSCULAR VOLUME 85.3 FL (80.0-94.0); MEAN PLATELET VOLUME 8.1 FL (7.4-10.4); PLATELET COUNT 214 /CUMM (130-400); RBC DISTRIBUTION WIDTH 14.4 % (11.5-14.5); RED BLOOD CELL CT 4.58 /CUMM (4.70-6.10)
--- NOTE | 2018-02-12 10:05 | PN- Housestaff ---
See Addendum Subjective Follow-up For: diarrhea Complaints: no complaints Subjective: Patient had 3 episodes of diarrhea last night; much less than previous days. Reports passing a lot of flatus during the night. Denies fever, chills, n/v/d, chest pain, SOB, abdominal pain. Review of Systems Constitutional: Reports: see HPI. Objective Last 24 Hrs of Vital Signs/I&O Vital Signs Date Time Temp Pulse Resp B/P B/P Pulse O2 O2 Flow FiO2 Mean Ox Delivery Rate 02/12 0631 98.5 72 20 108/56 100 Room Air 02/11 2202 98.1 72 20 124/56 98 Room Air 02/11 1456 97.8 79 18 100/60 98 Room Air Intake & Output 02/12 1600 02/12 0800 02/12 0000 Intake Total 1240 1240 Output Total Balance 1240 1240 Intake, IV 1000 1000 Intake, Oral 240 240 Number 2 Bowel Movements Patient 166 lb Weight Physical Exam General Appearance: Alert, Oriented X3, Cooperative, No Acute Distress Skin: No Rashes Skin Temp/Moisture Exam: Warm/Dry HEENT: Atraumatic, PERRLA Neck: Supple Cardiovascular: Regular Rate, Normal S1, Normal S2 Lungs: Clear to Auscultation Abdomen: Normal Bowel Sounds, Soft, No Tenderness Extremities: No Edema, Normal Pulses Assessment/Plan Assessment: Mr. Harding is a 77-year-old male with past medical history of cardiac stent placement in [address] Brennan, prostate cancer status post TURP, hypertension, hyperlipidemia. Patient has been experiencing increased bowel movements for the past 8 days. Problem list: 1. Diarrhea 2. MAYUR 3. Hypokalemia 4. Hypomagnesemia 5. Leukocytosis with bandemia # Diarrhea likely Gastroenteritis: Most likely etiology is viral but cannot exclude bacterial. Stool culture negative for Giardia and Cryptosporidium, C. difficile negative, Shiga toxin negative Plan - Stool culture sent per GI recs - Follow up with [facility] regarding culture from [facility] urgent care #Pre-Renal Azotemia: Creatinine level on admission 7.9 with a history of normal creatinine function, most likely due to hypovolemia secondary to the diarrhea. Ultrasound negative for renal pathology, hydronephrosis or obstruction. Today creatinine level was 4.4. FeNa was 1.1 producing mixed picture of acute tubular necrosis secondary to most likely hypovolemia. Plan 125cc/hr 02/11 as patient BP in 140s systolic and good PO intake; changed to 75cc /hr on 02/12-still has volume loss with diarrhea but PO intake is good. -Cr 1.4 today; continue to monitor #Pulmonary lung nodules: Patient asymptomatic, 4mm noduule in LLL and 3mm nodule in LLL on CT. -patient will require work up, most likely in outpatient setting #Hyperlipidemia - Atorvastatin 80mg #Hypertension - Hold Lisonpril, due to MAYUR and SBP of 90/57 #Hypokalemia 3.5-likely 2/2 volume depletion from diarrhea -replete with 40mEq today K-dur -continue to monitor #Hypomagnesemia 1.8-likely 2/2 volume depletion from diarrhea -repleted with 2g IV on 02/11 -continue to monitor #Leukocytosis with bandemia -diarrhea source workup pending -IV hydration -GI recs: cipro/flagyl Day 2 DVT PPx: Heparin Diet: heart healthy Code status: Full code Problem List: 1. Gastroenteritis 2. Acute renal failure Pain Ratin Pain Location: none Pain Goal: Remain pain free Pain Plan: see a/p Tomorrow's Labs & Rationales: cbc, bep
[2018-02-12 10:39] LABS: HEMATOCRIT 39.1 % (42-52); WHITE BLOOD CELL COUNT 11.8 /CUMM (4.8-10.8)
--- NOTE | 2018-02-12 14:55 | PN- Gastroenterology ---
Assessment/Plan GI Assessment/Recommendations: Acute, severe watery diarrhea, with associated volume depletion and MAYUR. Likely infectious in nature. Of note, stool never sent for vibrio as requested. Recommendations * Await final results of culture * Check stool for vibrio, lactoferrin as requested twice. However at this point the patient has been started on antimicrobial therapy. * Continue antimicrobial therap * Pepto-Bismol 2 tabs by mouth 4 times a day * Continue to avoid antimotility agents for now. * Continue solid diet to include wheat/oats/rice/pasta, bananas. Continue rehydration to include oral sodium and sugar. Subjective Subjective: Decreased stool quantity since yesterday. Still watery. No pain, nausea. No fever. Tolerating solid diet. Objective Vital Signs and I&Os Vital Signs Date Time Temp Pulse Resp B/P B/P Pulse O2 O2 Flow FiO2 Mean Ox Delivery Rate 02/12 0800 Room Air 02/12 0631 98.5 72 20 108/56 100 Room Air 02/11 2202 98.1 72 20 124/56 98 Room Air 02/11 1456 97.8 79 18 100/60 98 Room Air Intake & Output 02/12 1600 02/12 0400 02/11 1600 02/11 0400 02/10 1600 02/10 0400 Intake Total 1240 1240 2955 760 2200 855 Output Total 450 Balance 1240 1240 2955 310 2200 855 Intake, IV 1000 1000 2475 400 1600 375 Intake, Oral 240 240 480 360 600 480 Number 2 3 2 4 1 Bowel Movements Output, Urine 450 Patient 166 lb 176 lb 168 lb Weight Weight Bed scale Reported by Patient Measurement Method Physical Exam: Sclera anicteric. Abdomen soft, nondistended, nontender. Bowel sounds present. Current Medications: Current Medications Sig/Alexandr Start time Last Medication Dose Route Stop Time Status Admin Acetaminophen 650 MG Q6P PRN 02/09 1545 AC PO Aspirin 81 MG DAILY 02/10 0900 AC 02/12 PO 0758 Atorvastatin Calcium 80 MG 1700 02/09 1700 AC 02/11 PO 1654 Bismuth Subsalicylate 30 ML PCHS 02/11 2100 AC 02/12 PO 1433 Ciprofloxacin 500 MG BID 02/11 2100 AC 02/12 PO 02/15 2059 1028 Heparin Sodium 5,000 UNIT Q8 02/09 2200 AC 02/12 (Porcine) SC 1433 Lactated Ringer's 1,000 ML .[id number] 02/11 0200 AC 02/12 IV 1031 Magnesium Sulfate 1 GM Q2H 02/11 1515 DC 02/11 Dextrose/Water 100 ML IV 02/11 1914 1852 Metronidazole 500 MG BID 02/11 2100 AC 02/12 PO 0758 Potassium Chloride 40 MEQ ONCE ONE 02/12 1045 DC 02/12 PO 02/12 1046 1132 Potassium Chloride 40 MEQ ONCE ONE 02/11 1515 DC 02/11 PO 02/11 1516 1851 Results Pertinent Lab Results: Laboratory Tests 02/12 02/11 02/10 0825 1213 0808 Chemistry Sodium (137 - 145 mmol/L) 144 143 139 Potassium (3.5 - 5.1 mmol/L) 3.5 3.3 L 3.8 Chloride (98 - 107 mmol/L) 107 104 104 Carbon Dioxide (22 - 30 mmol/L) 24 22 21 L Anion Gap (5 - 16) 13 16 15 BUN (9 - 20 mg/dL) 38 H 55 H 82 H Creatinine (0.7 - 1.2 mg/dL) 1.4 H 1.9 H 4.4 H Estimated GFR (>60 ml/min) 49 L 35 L 13 L BUN/Creatinine Ratio (7 - 25 %) 27.1 H 28.9 H 18.6 Magnesium (1.6 - 2.3 mg/dL) 1.8 1.4 L Hematology CBC w Diff NO MAN DIFF REQ WBC (4.8 - 10.8 /CUMM) 11.8 H RBC (4.70 - 6.10 /CUMM) 4.58 L Hgb (14.0 - 18.0 G/DL) 13.2 L Hct (42 - 52 %) 39.1 L MCV (80.0 - 94.0 FL) 85.3 MCH (27.0 - 31.0 PG) 28.8 MCHC (33.0 - 37.0 G/DL) 33.8 RDW (11.5 - 14.5 %) 14.4 Plt Count (130 - 400 /CUMM) 214 MPV (7.4 - 10.4 FL) 8.1 Gran % (42.2 - 75.2 %) 67.2 Lymphocytes % (20.5 - 51.1 %) 9.2 L Monocytes % (1.7 - 9.3 %) 6.0 Eosinophils % (0 - 5 %) 17.5 H Basophils % (0.0 - 2.0 %) 0.1 Absolute Granulocytes (1.4 - 6.5 /CUMM) 7.9 H Absolute Lymphocytes (1.2 - 3.4 /CUMM) 1.1 L Absolute Monocytes (0.10 - 0.60 /CUMM) 0.7 H Absolute Eosinophils (0.0 - 0.7 /CUMM) 2.1 Absolute Basophils (0.0 - 0.2 /CUMM) 0 02/09 1707 1707 Other Body Source Stool Lactoferrin Pending Urines Urinalysis LIGHT H Urine Color (YEL,AMB,STR) YEL Urine Clarity (CLEAR) CLEAR Urine pH (5.0 - 8.0) 6.0 Ur Specific [place] (1.001 - 1.035) 1.010 Urine Protein (NEG,<30 MG/DL) NEG Urine Ketones (NEG) NEG Urine Nitrite (NEG) NEG Urine Bilirubin (NEG) NEG Urine Urobilinogen (0.1 - 1.0 EU/dl) 0.2 Ur Leukocyte Esterase (NEG) NEG Ur Microscopic SEDIMENT EXAMINED Urine WBC (0 - 2 /HPF) 1-3 H Urine Hemoglobin (NEG) TRACE-INTACT H Urine Osmolality (300 - 1000 MOSM/KG) 199 L Ur Random Creatinine (mg/dL) 104.2 Ur Random Sodium (30 - 90 mmol/L) 21 L Ur Random Potassium (mmol/L) 9.1 Fraction Sodium Excret (<1% %) 1.1 H Urine Glucose (N MG/DL) NEG 02/09 1604 Chemistry Lactic Acid Cancelled
[2018-02-12 15:24] VITALS: BP 102/60
[2018-02-12 22:11] VITALS: BP 120/64
[2018-02-13 06:25] VITALS: BP 120/64
--- NOTE | 2018-02-13 08:27 | PN- Housestaff ---
See Addendum Subjective Follow-up For: Diarrhea. Subjective: No acute events overnight, afebrile. Has not had an episode of diarrhea since 0545 on 02/12/18. Patient is tolerating diet, denies Nausea, vomiting, chest pain , fever, night sweats and chills. Review of Systems Constitutional: Reports: see HPI. Objective Last 24 Hrs of Vital Signs/I&O Vital Signs Date Time Temp Pulse Resp B/P B/P Pulse O2 O2 Flow FiO2 Mean Ox Delivery Rate 02/13 0625 99.2 68 18 120/64 97 02/12 2211 99.2 68 18 120/64 97 02/12 1524 98.7 58 18 102/60 100 Intake & Output 02/13 1600 02/13 0800 02/13 0000 Intake Total 600 400 Output Total Balance 600 400 Intake, IV 400 300 Intake, Oral 200 100 Physical Exam General Appearance: Alert, Oriented X3, Cooperative Skin: No Rashes HEENT: Atraumatic, EOMI Cardiovascular: Regular Rate, Normal S1, Normal S2 Lungs: Clear to Auscultation, Normal Air Movement Extremities: minimal edema in right wrist near IV line as compared to left Vascular: Normal Pulses, Pulses Symmetrical Assessment/Plan Assessment: Mr. Harding is a 77-year-old male with past medical history of cardiac stent placement in [address] Brennan, prostate cancer status post TURP, hypertension, hyperlipidemia. Patient has been experiencing increased bowel movements for the past 8 days. Problem list: 1. Diarrhea 2. MAYUR 3. Hypokalemia 4. Hypomagnesemia 5. Leukocytosis with bandemia # Diarrhea likely Gastroenteritis: Most likely etiology is viral but cannot exclude bacterial. Stool culture negative for Giardia and Cryptosporidium, C. difficile negative, Shiga toxin negative Plan - Stool culture sent per GI recs - Follow up [facility] regarding culture from [facility] urgent care [phone]- Called [facility], did not have results for O&P yet, negative for C.diff, Shigella, Salmonella. #Pre-Renal Azotemia: Creatinine level on admission 7.9 with a history of normal creatinine function, most likely due to hypovolemia secondary to the diarrhea. Ultrasound negative for renal pathology, hydronephrosis or obstruction. Today creatinine level was 1.4. FeNa was 1.1 producing mixed picture of acute tubular necrosis secondary to most likely hypovolemia. Plan 200cc/hr in setting of hypotension; changed to 125cc/hr 02/11 as patient BP in 140s systolic and good PO intake; changed to 75cc/hr on 02/12-still has volume loss with diarrhea but PO intake is good. -Cr 1.4 today; continue to monitor #Pulmonary lung nodules: Patient asymptomatic, 4mm noduule in LLL and 3mm nodule in LLL on CT. -patient will require work up, most likely in outpatient setting #Hyperlipidemia - Atorvastatin 80mg #Hypertension - Hold Lisonpril, due to MAYUR and SBP of 90/57 #Hypokalemia 3.5-likely 2/2 volume depletion from diarrhea -replete with 40mEq today K-dur -continue to monitor #Hypomagnesemia 1.8-likely 2/2 volume depletion from diarrhea -repleted with 2g IV on 02/11 -continue to monitor #Leukocytosis with bandemia -diarrhea source workup pending -IV hydration -GI recs: cipro/flagyl Day 2 DVT PPx: Heparin Diet: heart healthy Code status: Full code Patient will be dsicharged home today, he will be discharged with Ciprofloxacin 500mg and Metronidazole 250mg for 4 days, and Atorvastatin 80mg. Patient is instructed to follow up with PCP for repeat renal panel in 1 week or present earlier if he experiences symptoms of allergic drug reaction. Patient to follow up GI in 2 weeks. Problem List: 1. Gastroenteritis Pain Ratin Pain Location: n/a Pain Goal: Remain pain free Pain Plan: tylenol Tomorrow's Labs & Rationales: na/
[2018-02-13 08:31] LABS: ABSOLUTE BASOPHIL COUNT 0 /CUMM (0.0-0.2); ABSOLUTE EOSINOPHIL COUNT 2.4 /CUMM (0.0-0.7); ABSOLUTE LYMPH COUNT 1.3 /CUMM (1.2-3.4); ABSOLUTE MONOCYTE COUNT 0.8 /CUMM (0.10-0.60); BASOPHIL % 0.2 % (0.0-2.0); EOSINOPHIL % 19.1 % (0-5); HEMATOCRIT 36.7 % (42-52); MEAN CORPUSCULAR HGB 29.2 PG (27.0-31.0); MEAN CORPUSCULAR VOLUME 85.9 FL (80.0-94.0); MEAN PLATELET VOLUME 7.8 FL (7.4-10.4); PLATELET COUNT 224 /CUMM (130-400); RBC DISTRIBUTION WIDTH 14.5 % (11.5-14.5); RED BLOOD CELL CT 4.27 /CUMM (4.70-6.10)
[2018-02-13] MEDS ORDERED: CIPRO500 M1 PO (08:58)
[2018-02-13] MEDS ORDERED: FLAGYL250 M1 PO (08:58)
[2018-02-13] MEDS ORDERED: ATORVASTATIN CA80 M1 PO (08:58)
[2018-02-13 10:14] LABS: WHITE BLOOD CELL COUNT 12.6 /CUMM (4.8-10.8)
--- NOTE | 2018-02-13 14:06 | Discharge Summary ---
Hospital Course Allergies: Coded Allergies: Sulfa (Sulfonamide Antibiotics) (Mild, HIVES 02/09/18) Discharge Instructions Medications at Discharge Discharge Medications: Stop taking the following medications: Rosuvastatin Calcium (Crestor) 20 MG TABLET ORAL DAILY Qty = 90 Continue taking these medications: Lisinopril (Lisinopril) 10 MG TABLET 1 Tablet ORAL DAILY Qty = 90 Comments: DID NOT TAKE IN THE HOSPITAL Aspirin (Aspirin*) 81 MG TAB.CHEW 1 Tablet ORAL DAILY Comments: Last Taken:02/13/18 Time:830 AM Start taking the following new medications: Ciprofloxacin HCl (Cipro) 500 MG TABLET 500 Milligram ORAL TWICE DAILY Qty = 8 No Refills Comments: Last Taken:02/13/18 Time:830 AM Metronidazole (Flagyl) 250 MG TABLET 500 Milligram ORAL TWICE DAILY Qty = 8 No Refills Comments: Last Taken:02/13/18 Time:830 AM Atorvastatin Calcium (Atorvastatin Calcium) 80 MG TABLET 80 Milligram ORAL 5 PM Qty = 30 No Refills Comments: Last Taken:02/12/18 Time:5:30 PM
== END 2018-02-13 13:35 | DRG 392 ==
LOC: ERH 12:54 → 2NA 14:38 → ERHI 14:38 → ENRESERV 14:45 → ENTRNSPT 17:55 → EDTRNSPTSTS 18:08 → 2NA 18:12 → CMPTRNSPT 18:30 → ENPENDDIS 02-13 09:07 → 2NA 02-13 13:35
PROVIDERS: Internal Medicine; Physician Assistant Medical
DX: K52.9 Noninfective gastroenteritis and colitis, unspecified (principal); N17.9 Acute kidney failure, unspecified; E86.1 Hypovolemia; I25.10 Atherosclerotic heart disease of native coronary artery without angina pectoris; I10 Essential (primary) hypertension; E78.5 Hyperlipidemia, unspecified; R91.8 Other nonspecific abnormal finding of lung field; I44.7 Left bundle-branch block, unspecified; Z85.46 Personal history of malignant neoplasm of prostate; Z98.61 Coronary angioplasty status; Z90.79 Acquired absence of other genital organ(s); Z88.2 Allergy status to sulfonamides; Z79.82 Long term (current) use of aspirin; E83.42 Hypomagnesemia; E87.6 Hypokalemia
CPT/HCPCS: 2NAP; 84133; 84300; 36592; 74176; 81001; 82436; 82570; 83630; 87015; 87045; 87328; 87329; 87899; 87899-59; 93005; 93010; 96374; J1644; J2405; J3490; J7120